=== PATIENT | female | born 1965 | race Caucasian/White ===

== ENCOUNTER 2016-12-02 16:11 | Emergency (ER) | payer BC ==
[2016-12-02] MEDS ORDERED: NS 0.9% 1000 ML* 1,800 ML IV ONE (17:39)
[2016-12-02] MEDS ORDERED: Morphine INJ* 4 MG/ML 1 ML SYRINGE IV ONE (17:41)
[2016-12-02] MEDS ORDERED: Ketorolac INJ* 30 MG/ML 1 ML VIAL IV ONE (17:41)
[2016-12-02] MEDS ORDERED: Ondansetron INJ* 2 MG/ML VIAL IV ONE (17:41)
[2016-12-02] MEDS ORDERED: Acetaminophen TAB* 325 MG PO ONE (17:42)
[2016-12-02 17:47] LABS: Hematocrit 42 % (35-47); Hemoglobin 14.1 g/dl (12.0-16.0); Mean Corpuscular HGB Conc 34 g/dl (31-36); Mean Corpuscular Hemoglobin 29 pg (27-31); Mean Corpuscular Volume 87 fL (80-97); Mean Platelet Volume 9 um3 (7.4-10.4); Red Blood Count 4.84 10^6/ul (4.0-5.4); Red Cell Distribution Width 13 % (10.5-15)
[2016-12-02 17:58] LABS: BUN/Creatinine Ratio 11.3 (8-20); C Reactive Protein 41.22 mg/L (< 5.00); Calcium 8.8 mg/dL (8.6-10.3); EGFR Non-African American 76.2 (>60); Globulin 3.1 g/dL (2-4); Potassium 3.9 mmol/L (3.5-5.0); Total Bilirubin 0.6 mg/dL (0.2-1.0); Total Protein 7.1 g/dL (6.4-8.9)
--- NOTE | 2016-12-02 18:51 | RAD ---
Indication: Fever. Single frontal view of the chest performed at 1744 hours was reviewed. Comparison is made with previous exam dated January 18, 1714. No mediastinal shift is noted. Heart is of normal size and configuration. Lung schwartz appear clear. IMPRESSION: NO ACTIVE CARDIOPULMONARY DISEASE IS NOTED.
[2016-12-02 19:36] LABS: Urine Bacteria Absent (Absent); Urine Bilirubin Negative (Negative); Urine Glucose Negative (Negative); Urine Nitrite Negative (Negative)
[2016-12-02] MEDS ORDERED: DOXYcycline CAP(*) 100 MG PO ONE ×2 (20:17→20:24)
--- NOTE | 2016-12-02 20:26 | ED ---
Meg Otoole Auryana, scribed for Meseret Edwards MD on 12/02/16 at 1650 . Influenza-Like Illness - HPI Summary HPI Summary: 51 year old female present with general body aches and fever starting on 3 days ago. Patient reports that initially 5 days ago she had chills, that progressed to diffuse myalgia/arthralgia, and now fever and DUNCAN. She denies any pain with urination or any cough. Patient reports history of neck stiffness. She denies any exposure to lyme - but does report working in the garden. PMHx is significant for headaches. FHx is significant for DM. - History of Current Complaint Chief Complaint: EDFever Time Seen by Provider: 12/02/16 16:48 Hx Obtained From: Patient Onset/Duration: Gradual Onset, Lasting Days - 5 Associated Signs & Symptoms: Fever, T Max - 105, F/C - F, Myalgia, Headache Related Hx: Possible Flu/Infectious Exposure - denies lyme disease exposure - Allergy/Home Medications Allergies/Adverse Reactions: Allergies Allergy/AdvReac Type Severity Reaction Status Date / Time No Known Allergies Allergy Verified 09/05/15 09:21 PMH/Surg Hx/FS Hx/Imm Hx Endocrine/Hematology History: Denies: Hx Diabetes Cardiovascular History: Reports: Hx Hypertension - ON MEDS Denies: Hx Pacemaker/ICD History: Denies: Hx Renal Disease Sensory History: Denies: Hx Hearing Aid Psychiatric History: Denies: Hx Panic Disorder - Surgical History Surgery Procedure, Year, and Place: APPENDECTOMY 1994-GALLBLADDER 2004 Infectious Disease History: No Infectious Disease History: Denies: Traveled Outside the [place] in Last 30 Days - Family History Known Family History: Positive: Diabetes - Social History Occupation: Employed Full-time Lives: With Family Alcohol Use: None Hx Substance Use: No Substance Use Type: Reports: None Hx Tobacco Use: No Smoking Status (MU): Never Smoked Tobacco Review of Systems Positive: Fever, Chills Eyes: Negative ENT: Negative Negative: Nasal Discharge Cardiovascular: Negative Respiratory: Negative Negative: Cough Gastrointestinal: Negative Genitourinary: Negative Negative: burning Positive: Arthralgia - diffuse, Myalgia - diffuse Skin: Negative Positive: Headache Psychological: Normal All Other Systems Reviewed And Are Negative: Yes Physical Exam - Summary Physical Exam Summary: General: Well appearing, no pain distress but does look uncomfortable. Skin: Warm, Skin Color Reflects Adequate Perfusion, Dry. Patient looks flushed. Eyes: EOMI, WILFRIDO ENT: Pharynx normal, TMs normal Neck: Supple, nontender Respiratory: CTA, breath sounds present, no rhonchi, no wheezes, no rales Cardiovascular: RRR, no murmur, no rub, no gallop Abdomen: Soft, nontender, Non-distended, no guarding, no rebound Bowel: Present Musculoskeletal: GAYATHRI, No edema Neuro: Sensory/motor intact, A&Ox3, CN intact 2-12 Psych: Affect/mood appropriate Triage Information Reviewed: Yes Vital Signs On Initial Exam: Initial Vitals Temp Pulse Resp BP Pulse Ox 103.5 F 129 20 148/84 97 12/02/16 16:12 12/02/16 16:12 12/02/16 16:12 12/02/16 16:12 12/02/16 16:12 Vital Signs Reviewed: Yes Diagnostics - Vital Signs Vital Signs Temp Pulse Resp BP Pulse Ox 12/02/16 16:12 103.5 F 129 20 148/84 97 - Laboratory Lab Results: Lab Results 12/02/16 12/02/16 12/02/16 Range/Units 17:40 17:40 17:40 WBC 4.0 (3.5-10.8) 10^3/ul RBC 4.84 (4.0-5.4) 10^6/ul Hgb 14.1 (12.0-16.0) g/dl Hct 42 (35-47) % MCV 87 (80-97) fL MCH 29 (27-31) pg MCHC 34 (31-36) g/dl RDW 13 (10.5-15) % Plt Count 124 L (150-450) 10^3/ul MPV 9 (7.4-10.4) um3 Neut % (Auto) 84.8 H (38-83) % Lymph % (Auto) 10.5 L (25-47) % Woodruff % (Auto) 4.3 (1-9) % Eos % (Auto) 0 (0-6) % Baso % (Auto) 0.4 (0-2) % Absolute Neuts (auto) 3.4 (1.5-7.7) 10^3/ul Absolute Lymphs (auto) 0.4 L (1.0-4.8) 10^3/ul Absolute Monos (auto) 0.2 (0-0.8) 10^3/ul Absolute Eos (auto) 0 (0-0.6) 10^3/ul Absolute Basos (auto) 0 (0-0.2) 10^3/ul Absolute Nucleated RBC 0.01 10^3/ul Nucleated RBC % 0.1 INR (Anticoag Therapy) 1.02 (0.89-1.11) Sodium 135 (133-145) mmol/L Potassium 3.9 (3.5-5.0) mmol/L Chloride 101 (101-111) mmol/L Carbon Dioxide 26 (22-32) mmol/L Anion Gap 8 (2-11) mmol/L BUN 9 (6-24) mg/dL Creatinine 0.80 (0.51-0.95) mg/dL Est GFR ( Amer) 98.0 (>60) Est GFR (Non-Af Amer) 76.2 (>60) BUN/Creatinine Ratio 11.3 (8-20) Glucose 93 (70-100) mg/dL Lactic Acid (0.5-2.0) mmol/L Calcium 8.8 (8.6-10.3) mg/dL Total Bilirubin 0.60 (0.2-1.0) mg/dL AST 19 (13-39) U/L ALT 12 (7-52) U/L Alkaline Phosphatase 30 L (34-104) U/L C-Reactive Protein 41.22 H (< 5.00) mg/L Total Protein 7.1 (6.4-8.9) g/dL Albumin 4.0 (3.2-5.2) g/dL Globulin 3.1 (2-4) g/dL Albumin/Globulin Ratio 1.3 (1-3) Urine Color Urine Appearance Urine pH (5-9) Ur Specific [place] (1.010-1.030) Urine Protein (Negative) Urine Ketones (Negative) Urine Blood (Negative) Urine Nitrate (Negative) Urine Bilirubin (Negative) Urine Urobilinogen (Negative) Ur Leukocyte Esterase (Negative) Urine WBC (Auto) (Absent) Urine RBC (Auto) (Absent) Ur Squamous Epith Cells (Absent) Urine Bacteria (Absent) Urine Glucose (Negative) 12/02/16 12/02/16 Range/Units 17:40 19:15 WBC (3.5-10.8) 10^3/ul RBC (4.0-5.4) 10^6/ul Hgb (12.0-16.0) g/dl Hct (35-47) % MCV (80-97) fL MCH (27-31) pg MCHC (31-36) g/dl RDW (10.5-15) % Plt Count (150-450) 10^3/ul MPV (7.4-10.4) um3 Neut % (Auto) (38-83) % Lymph % (Auto) (25-47) % Woodruff % (Auto) (1-9) % Eos % (Auto) (0-6) % Baso % (Auto) (0-2) % Absolute Neuts (auto) (1.5-7.7) 10^3/ul Absolute Lymphs (auto) (1.0-4.8) 10^3/ul Absolute Monos (auto) (0-0.8) 10^3/ul Absolute Eos (auto) (0-0.6) 10^3/ul Absolute Basos (auto) (0-0.2) 10^3/ul Absolute Nucleated RBC 10^3/ul Nucleated RBC % INR (Anticoag Therapy) (0.89-1.11) Sodium (133-145) mmol/L Potassium (3.5-5.0) mmol/L Chloride (101-111) mmol/L Carbon Dioxide (22-32) mmol/L Anion Gap (2-11) mmol/L BUN (6-24) mg/dL Creatinine (0.51-0.95) mg/dL Est GFR ( Amer) (>60) Est GFR (Non-Af Amer) (>60) BUN/Creatinine Ratio (8-20) Glucose (70-100) mg/dL Lactic Acid 1.0 (0.5-2.0) mmol/L Calcium (8.6-10.3) mg/dL Total Bilirubin (0.2-1.0) mg/dL AST (13-39) U/L ALT (7-52) U/L Alkaline Phosphatase (34-104) U/L C-Reactive Protein (< 5.00) mg/L Total Protein (6.4-8.9) g/dL Albumin (3.2-5.2) g/dL Globulin (2-4) g/dL Albumin/Globulin Ratio (1-3) Urine Color Yellow Urine Appearance Clear Urine pH 6.0 (5-9) Ur Specific [place] 1.016 (1.010-1.030) Urine Protein Negative (Negative) Urine Ketones 1+ H (Negative) Urine Blood 1+ H (Negative) Urine Nitrate Negative (Negative) Urine Bilirubin Negative (Negative) Urine Urobilinogen Negative (Negative) Ur Leukocyte Esterase Negative (Negative) Urine WBC (Auto) Trace(0-5/hpf) (Absent) Urine RBC (Auto) 2+(6-10/hpf) H (Absent) Ur Squamous Epith Cells Present H (Absent) Urine Bacteria Absent (Absent) Urine Glucose Negative (Negative) Result Diagrams: 12/02/16 17:40 12/02/16 17:40 Lab Statement: Any lab studies that have been ordered have been reviewed, and results considered in the medical decision making process. - Radiology CXR Xray Interpretation: No Acute Changes Radiology Interpretation Completed By: Radiologist - EKG 18:22 EKG Rhythm: Sinus Tachycardia EKG Interpretation: tachycardia but otherwise NML Flu Symptom Course/Dx - Course Course Of Treatment: 51 yo female with high fever, and tachycardia labs remarkably normal pt with joint aches and head ache no rash but some opportunity for tick exposure agrees to treatment - Diagnoses Provider Diagnoses: Fever Discharge - Discharge Plan Condition: Stable Disposition: HOME Patient Education Materials: Fever in Adults (ED) Referrals: Preethi Carey MD [Primary Care Provider] - 3 Days The documentation as recorded by the Meg colmenares Auryana accurately reflects the service I personally performed and the decisions made by , Meseret Edwards MD.
[2016-12-02 20:31] VITALS: BP 121/75
== END 2016-12-02 20:42 | disposition home or self-care (01) ==
LOC: ED 16:11
DX: R50.9 Fever, unspecified (principal); R51 Headache
CPT/HCPCS: 36415; 71010; 80053; 81003; 81015; 83605; 85025; 85610; 86140; 87040; 93005; 96374; 96375; 99283; A9270-GY; J1885; J2270; J2405

== ENCOUNTER 2016-12-03 13:30 | Emergency (ER) | payer BC ==
[2016-12-03 18:25] LABS: Hematocrit 40 % (35-47); Hemoglobin 13.2 g/dl (12.0-16.0); Mean Corpuscular HGB Conc 33 g/dl (31-36); Mean Corpuscular Hemoglobin 29 pg (27-31); Mean Corpuscular Volume 88 fL (80-97); Mean Platelet Volume 9 um3 (7.4-10.4); Red Blood Count 4.56 10^6/ul (4.0-5.4); Red Cell Distribution Width 13 % (10.5-15); White Blood Count 5.9 10^3/ul (3.5-10.8)
[2016-12-03 18:42] LABS: C Reactive Protein 77.81 mg/L (< 5.00)
[2016-12-03] MEDS ORDERED: Ketorolac INJ* 30 MG/ML 1 ML VIAL IV ONE (18:57)
[2016-12-03] MEDS ORDERED: DOXYcycline IV* 100 MG in NS 0.9% 250 ML* 250 ML IVPB ONE (18:57)
[2016-12-03] MEDS ORDERED: NS 0.9% 1000 ML* 1,000 ML IV ONE (18:57)
[2016-12-03] MEDS ORDERED: Acetaminophen TAB* 325 MG PO ONE (19:29)
[2016-12-03 21:43] LABS: CSF Glucose 58 mg/dL (40-70)
[2016-12-03 21:57] LABS: BF WBC Count #1 0; BF WBC Count #2 2; Body Fluid Appearance Clear; Body Fluid WBC 1 /mcL; WBC counts within 15%? Yes
[2016-12-03 21:59] LABS: BF RBC Count #1 11; BF RBC Count #2 13; RBC counts within 6%? Yes
[2016-12-03 22:06] LABS: Body Fluid Total Cells Counted 10
[2016-12-03 22:39] VITALS: BP 128/78
[2016-12-03 22:45] LABS: Albumin 3.8 g/dL (3.2-5.2); BUN/Creatinine Ratio 8.9 (8-20); EGFR African American 99.5 (>60); EGFR Non-African American 77.4 (>60); Globulin 2.8 g/dL (2-4); Potassium 3.9 mmol/L (3.5-5.0); Total Bilirubin 0.7 mg/dL (0.2-1.0); Total Protein 6.6 g/dL (6.4-8.9)
--- NOTE | 2016-12-05 13:49 | ED ---
Corrina Otoole SooYoung, scribed for Andrea Gabriel MD on 12/03/16 at 1709 . HPI Febrile Illness - HPI Summary HPI Summary: A 51 y/o F presents to ED referred by Dr. Carey with c/o fever and chills onset five days ago. Associated sx: diffuse DUNCAN, body aches, jaw pain. Pt was seen in ED last night with temp of 104.5 F. She was given doxy last night, has taken 1 dose. Took 2x 400mg Ibuprofen around 1300. - History of Current Complaint Chief Complaint: EDFever Time Seen by Provider: 12/03/16 17:05 Hx Obtained From: Patient Onset/Duration: Still Present Timing: Constant Initial Severity: Moderate Current Severity: Severe Pain Intensity: 8 Pain Scale Used: 0-10 Numeric Associated Signs and Symptoms: Chills, Headache, Myalgia, Other: - pos: jaw pain - Allergy/Home Medications Allergies/Adverse Reactions: Allergies Allergy/AdvReac Type Severity Reaction Status Date / Time No Known Allergies Allergy Verified 09/05/15 09:21 PMH/Surg Hx/FS Hx/Imm Hx Previously Healthy: No Endocrine/Hematology History: Denies: Hx Diabetes Cardiovascular History: Reports: Hx Hypertension - ON MEDS Denies: Hx Pacemaker/ICD History: Denies: Hx Renal Disease Sensory History: Denies: Hx Hearing Aid Psychiatric History: Denies: Hx Panic Disorder - Surgical History Surgery Procedure, Year, and Place: APPENDECTOMY 1994-GALLBLADDER 2005 Infectious Disease History: No Infectious Disease History: Denies: Traveled Outside the [place] in Last 30 Days - Family History Known Family History: Positive: Diabetes - Social History Occupation: Employed Full-time Lives: With Family Alcohol Use: None Hx Substance Use: No Substance Use Type: Reports: None Hx Tobacco Use: No Smoking Status (MU): Never Smoked Tobacco Review of Systems Positive: Fever, Chills Positive: Other - pos: jaw pain Positive: Myalgia - diffuse Positive: Headache All Other Systems Reviewed And Are Negative: Yes Physical Exam Triage Information Reviewed: Yes Vital Signs On Initial Exam: Initial Vitals Temp Pulse Resp BP Pulse Ox 101.5 F 122 16 125/71 97 12/03/16 13:30 12/03/16 13:30 12/03/16 13:30 12/03/16 13:30 12/03/16 13:30 Vital Signs Reviewed: Yes Appearance: Positive: Well-Appearing, No Pain Distress Skin: Positive: Warm, Skin Color Reflects Adequate Perfusion - FLUSHED AT CHEST , Dry Head/Face: Positive: Normal Head/Face Inspection Eyes: Positive: Normal ENT: Positive: Normal ENT inspection Neck: Positive: Supple, Nontender, Other: - NO MENINGISMUS Respiratory/Lung Sounds: Positive: Clear to Auscultation, Breath Sounds Present Cardiovascular: Positive: RRR Abdomen Description: Positive: Nontender, Soft Bowel Sounds: Positive: Present Musculoskeletal: Positive: Normal Neurological: Positive: Normal Psychiatric: Positive: Normal, Affect/Mood Appropriate Diagnostics - Vital Signs Vital Signs Temp Pulse Resp BP Pulse Ox 12/03/16 15:09 99.7 F 103 16 138/80 98 12/03/16 13:30 101.5 F 122 16 125/71 97 - Laboratory Lab Results: Lab Results 12/03/16 12/03/16 12/03/16 Range/Units 18:10 18:10 21:00 WBC 5.9 (3.5-10.8) 10^3/ul RBC 4.56 (4.0-5.4) 10^6/ul Hgb 13.2 (12.0-16.0) g/dl Hct 40 (35-47) % MCV 88 (80-97) fL MCH 29 (27-31) pg MCHC 33 (31-36) g/dl RDW 13 (10.5-15) % Plt Count 117 L (150-450) 10^3/ul MPV 9 (7.4-10.4) um3 Neut % (Auto) 85.6 H (38-83) % Lymph % (Auto) 11.0 L (25-47) % [place] % (Auto) 3.1 (1-9) % Eos % (Auto) 0 (0-6) % Baso % (Auto) 0.3 (0-2) % Absolute Neuts (auto) 5.1 (1.5-7.7) 10^3/ul Absolute Lymphs (auto) 0.6 L (1.0-4.8) 10^3/ul Absolute Monos (auto) 0.2 (0-0.8) 10^3/ul Absolute Eos (auto) 0 (0-0.6) 10^3/ul Absolute Basos (auto) 0 (0-0.2) 10^3/ul Absolute Nucleated RBC 0 10^3/ul Nucleated RBC % 0 Sodium 134 (133-145) mmol/L Potassium 3.9 (3.5-5.0) mmol/L Chloride 100 L (101-111) mmol/L Carbon Dioxide 24 (22-32) mmol/L Anion Gap 10 (2-11) mmol/L BUN 7 (6-24) mg/dL Creatinine 0.79 (0.51-0.95) mg/dL Est GFR ( Amer) 99.5 (>60) Est GFR (Non-Af Amer) 77.4 (>60) BUN/Creatinine Ratio 8.9 (8-20) Glucose 95 (70-100) mg/dL Calcium 9.0 (8.6-10.3) mg/dL Total Bilirubin 0.70 (0.2-1.0) mg/dL AST 23 (13-39) U/L ALT 17 (7-52) U/L Alkaline Phosphatase 28 L (34-104) U/L C-Reactive Protein 77.81 H (< 5.00) mg/L Total Protein 6.6 (6.4-8.9) g/dL Albumin 3.8 (3.2-5.2) g/dL Globulin 2.8 (2-4) g/dL Albumin/Globulin Ratio 1.4 (1-3) Fluid Source Fluid Volume mL Fluid Color Fluid Appearance Fluid WBC /mcL Fluid RBC /mcL Fluid Tot Cell Count Fluid Neutrophils Fluid Lymphocytes % Fluid Monocytes % Fluid Cell Count Rvw By Fluid Comment CSF Cell Count Tube # CSF Glucose 58 (40-70) mg/dL CSF Total Protein 17 (15-45) mg/dL 12/03/16 Range/Units 21:00 WBC (3.5-10.8) 10^3/ul RBC (4.0-5.4) 10^6/ul Hgb (12.0-16.0) g/dl Hct (35-47) % MCV (80-97) fL MCH (27-31) pg MCHC (31-36) g/dl RDW (10.5-15) % Plt Count (150-450) 10^3/ul MPV (7.4-10.4) um3 Neut % (Auto) (38-83) % Lymph % (Auto) (25-47) % [place] % (Auto) (1-9) % Eos % (Auto) (0-6) % Baso % (Auto) (0-2) % Absolute Neuts (auto) (1.5-7.7) 10^3/ul Absolute Lymphs (auto) (1.0-4.8) 10^3/ul Absolute Monos (auto) (0-0.8) 10^3/ul Absolute Eos (auto) (0-0.6) 10^3/ul Absolute Basos (auto) (0-0.2) 10^3/ul Absolute Nucleated RBC 10^3/ul Nucleated RBC % Sodium (133-145) mmol/L Potassium (3.5-5.0) mmol/L Chloride (101-111) mmol/L Carbon Dioxide (22-32) mmol/L Anion Gap (2-11) mmol/L BUN (6-24) mg/dL Creatinine (0.51-0.95) mg/dL Est GFR ( Amer) (>60) Est GFR (Non-Af Amer) (>60) BUN/Creatinine Ratio (8-20) Glucose (70-100) mg/dL Calcium (8.6-10.3) mg/dL Total Bilirubin (0.2-1.0) mg/dL AST (13-39) U/L ALT (7-52) U/L Alkaline Phosphatase (34-104) U/L C-Reactive Protein (< 5.00) mg/L Total Protein (6.4-8.9) g/dL Albumin (3.2-5.2) g/dL Globulin (2-4) g/dL Albumin/Globulin Ratio (1-3) Fluid Source Cerebral spinal Fluid Volume 1.5 mL Fluid Color Colorless Fluid Appearance Clear Fluid WBC 1 /mcL Fluid RBC 12 /mcL Fluid Tot Cell Count 10 Fluid Neutrophils Not Reportable Fluid Lymphocytes 60 % Fluid Monocytes 40 % Fluid Cell Count Rvw By Fluid Comment CSF Cell Count Tube # 4 CSF Glucose (40-70) mg/dL CSF Total Protein (15-45) mg/dL Result Diagrams: 12/03/16 18:10 12/03/16 18:10 Lab Statement: Any lab studies that have been ordered have been reviewed, and results considered in the medical decision making process. Re-Evaluation - Re-Evaluation 1 Re-Evaluation Time: 22:22 Change: Improved Comment: Discussing results with pt. Pt appears mildly improved. Course/Dx - Course Course Of Treatment: Ms. Akbar has not improved in the two days since she was here and diagnosed with a likely tick-borne illness with a high fever. She was started on doxycycline of which she has had two doses. She had a fever of 104 at home and has been taking ibuprofen. Here she looked ill on arrival with tachycardia and a fever and she improved somewhat with fluids and antipyretics. Her WBC's were still normal but her platelets are lower and her CRP is higher. This is consistent with a tick-borne illness. She was given IV doxycycline here. DUNCAN is a very prominent symptom for her and, therefore I performed an LP which is normal. Her RBC's were 12 and this is likely from the tap rather than representing a SAH as it has been days and there is no xanthrochromia and it does not fit the clinical picture. - Diagnoses Provider Diagnoses: Tick-borne disease Discharge - Discharge Plan Condition: Stable Disposition: HOME Patient Education Materials: Fever in Adults (ED), Acute Headache (ED) Referrals: Preethi Carey MD [Primary Care Provider] - 2 Days (Follow up with Dr. Carey in 1-2 days.) Additional Instructions: Follow up with Dr. Carey within the next 1-2 days. Please return to the ED if you experience new or worsening symptoms. The documentation as recorded by the Corrina colmenares SooYoung accurately reflects the service I personally performed and the decisions made by me, Andrea Gabriel MD.
[2016-12-06 00:37] LABS: B garinii/B afzelii PCR Negative (Negative); B mayonii PCR Negative (Negative)
[2016-12-06 00:45] LABS: B. miyamotoi PCR, B Negative (Negative); Babesia divergens/MO-1 Negative (Negative); Babesia ducani Negative (Negative); Ehrlichia ewingii/canis Negative (Negative)
[2016-12-06 01:34] LABS: CSF West Nile Virus RNA (PCR) Negative (Negative); West Nile Virus Source CSF
== END 2016-12-03 22:37 | disposition home or self-care (01) ==
LOC: ED 13:30
DX: A00-B99 Certain infectious and parasitic diseases (principal)
CPT/HCPCS: 36415; 80053; 82945; 84157; 85025; 86140; 86617; 87070; 87205; 87476; 87798; 89051; 99283; A9270-GY; J1885

== ENCOUNTER 2016-12-20 10:37 | Observation (INO) | payer BC ==
[2016-12-20] MEDS ORDERED: Aspirin Low Dose CHEW TAB* 81 MG PO ONE (10:42)
[2016-12-20] MEDS ORDERED: NS 0.9% 1000 ML* 1,000 ML IV ONE (10:42)
[2016-12-20] MEDS ORDERED: Diltiazem IV* 5 MG/ML 5 ML VIAL (for loading dose/IV Push) (25 MG) IV SLOW PU ONE (10:44)
--- NOTE | 2016-12-20 11:16 | RAD ---
INDICATION: Tachycardia. COMPARISON: Comparison is made with a prior chest x-ray study from December 02, 2016. TECHNIQUE: A portable view of the chest was obtained. FINDINGS: Cardiac and mediastinal contours appear to be within normal limits. The lungs are clear. No pleural effusion is seen. IMPRESSION: NO EVIDENCE FOR ACUTE DISEASE.
[2016-12-20 11:46] LABS: Hematocrit 45 % (35-47); Hemoglobin 14.2 g/dl (12.0-16.0); Mean Corpuscular HGB Conc 32 g/dl (31-36); Mean Corpuscular Hemoglobin 28 pg (27-31); Mean Corpuscular Volume 88 fL (80-97); Mean Platelet Volume 9 um3 (7.4-10.4); Red Blood Count 5.03 10^6/ul (4.0-5.4); Red Cell Distribution Width 14 % (10.5-15); White Blood Count 12.3 10^3/ul (3.5-10.8)
[2016-12-20] MEDS ORDERED: Diltiazem IV VIAL* 125 MG in D5W 100 ML BAG* 100 ML IV ONE (11:52)
[2016-12-20 11:54] LABS: ALT 18 U/L (7-52); AST 21 U/L (13-39); Albumin 4.6 g/dL (3.2-5.2); Alkaline Phosphatase 42 U/L (34-104); Anion Gap 12 mmol/L (2-11); Blood Urea Nitrogen 9 mg/dL (6-24); CO2 Carbon Dioxide 22 mmol/L (22-32); Calcium 9.3 mg/dL (8.6-10.3); Chloride 103 mmol/L (101-111); Creatine Kinase 39 U/L (10-223); EGFR African American 136.6 (>60); EGFR Non-African American 106.3 (>60); Glucose 75 mg/dL (70-100); Magnesium 1.9 mg/dL (1.9-2.7); Potassium 3.8 mmol/L (3.5-5.0); Sodium 137 mmol/L (133-145); Total Protein 7.6 g/dL (6.4-8.9)
[2016-12-20 11:56] LABS: Troponin I 0.01 ng/mL (<0.04)
[2016-12-20] MEDS ORDERED: Magnesium Sulfate 2 GM IV* 2 GM/50 ML BAG IVPB ONE (12:20)
[2016-12-20] MEDS ORDERED: Acetaminophen TAB* 325 MG PO PRN (12:28)
[2016-12-20 12:31] LABS: C Reactive Protein < 1.00 mg/L (< 5.00)
[2016-12-20 12:37] LABS: TSH (Thyroid Stimulating Horm) 1.27 mcIU/mL (0.34-5.60)
[2016-12-20 12:53] LABS: Erythrocyte Sed Rate 9 mm/Hr (0-14)
[2016-12-20] MEDS ORDERED: Diltiazem DRIP* 100 MG/100 ML ADDV.BAG IVPB SCH (13:00)
[2016-12-20] MEDS: Ondansetron INJ* 2 MG/ML VIAL IV PRN ×2 (13:10→19:32)
--- NOTE | 2016-12-20 14:10 | ED ---
Meg Otoole Auryana, scribed for Herb Pagan MD on 12/20/16 at 1047 . Palpitations / Dysrhythmia - HPI Summary HPI Summary: 51 year old female RICKEY with SVT starting 09:1509:30. Patient reports that she was unable to break the episode of SVT today. She also has chest pressure after EMS treatment POULTRY SCALDER. She denies any SOB. PMHx is significant for lyme disease, and SVT - no history of atrial fibrillation. SHx is not significant for tobacco , alcohol or any drug use. - History of Current Complaint Time Seen by Provider: 12/20/16 10:46 Hx Obtained From: Patient Onset/Duration: Sudden Onset, Lasting Hours - started at 09:1509:30 AM, Still Present Timing: Constant Severity Initially: Moderate Severity Currently: Moderate Character: Fast, Irregular Alleviating: Nothing Associated Signs & Symptoms: Chest Pain - CHEST PRESSURE Related History: Similar Episode/Dx as - YES SEE HPI - Allergy/Home Medications Allergies/Adverse Reactions: Allergies Allergy/AdvReac Type Severity Reaction Status Date / Time No Known Allergies Allergy Verified 09/05/15 09:21 PMH/Surg Hx/FS Hx/Imm Hx Endocrine/Hematology History: Denies: Hx Diabetes Cardiovascular History: Reports: Hx Hypertension - ON MEDS Denies: Hx Pacemaker/ICD History: Denies: Hx Renal Disease Sensory History: Denies: Hx Hearing Aid Psychiatric History: Denies: Hx Panic Disorder - Surgical History Surgery Procedure, Year, and Place: APPENDECTOMY 1994-GALLBLADDER 2004 - Family History Known Family History: Positive: Diabetes - Social History Lives: With Family Alcohol Use: None Hx Substance Use: No Substance Use Type: Reports: None Hx Tobacco Use: No Smoking Status (MU): Never Smoked Tobacco Review of Systems Constitutional: Negative Negative: Fever Eyes: Negative ENT: Negative Positive: Palpitations - SVT, Chest Pain - CHEST PRESSURE Respiratory: Negative Negative: Shortness Of Breath Gastrointestinal: Negative Genitourinary: Negative Musculoskeletal: Negative Skin: Negative Neurological: Negative Psychological: Normal All Other Systems Reviewed And Are Negative: Yes Physical Exam - Summary Physical Exam Summary: VITAL SIGNS: Reviewed. GENERAL: Patient is a well-developed and nourished female who is lying comfortable in the stretcher. Patient is not in any acute respiratory distress. HEAD AND FACE: No signs of trauma. No ecchymosis, hematomas or skull depressions. No sinus tenderness. EYES: PERRLA, EOMI x 2, No injected conjunctiva, no nystagmus. EARS: Hearing grossly intact. Ear canals and tympanic membranes are within normal limits. MOUTH: Oropharynx within normal limits. NECK: Supple, trachea is midline, no adenopathy, no JVD, no carotid bruit, no c- spine tenderness, neck with full ROM. CHEST: Symmetric, no tenderness at palpation LUNGS: Clear to auscultation bilaterally. No wheezing or crackles. CVS: tachycardic with IRR, S1 and S2 present, no murmurs or gallops appreciated. ABDOMEN: Soft, non-tender. No signs of distention. No rebound no guarding, and no masses palpated. Bowel sounds are normal. EXTREMITIES: FROM in all major joints, no edema, no cyanosis or clubbing. NEURO: Alert and oriented x 3. No acute neurological deficits. Speech is normal and follows commands. SKIN: mildly diaphoretic and warm. Triage Information Reviewed: Yes Vital Signs Reviewed: Yes Diagnostics - Laboratory Result Diagrams: 12/20/16 11:30 12/20/16 11:30 Lab Statement: Any lab studies that have been ordered have been reviewed, and results considered in the medical decision making process. - Radiology CXR Xray Interpretation: No Acute Changes Radiology Interpretation Completed By: Radiologist - EKG 10:41 EKG Interpretation: atrial fibrillation @ 166 BPM. Course/Dx - Course Assessment/Plan: 51 year old female BIBA with SVT starting 09:15/09:30. Patient reports that she was unable to break the episode of SVT today. She also has chest pressure after EMS treatment POULTRY SCALDER. She denies any SOB. PMHx is significant for lyme disease, and SVT - no history of atrial fibrillation. SHx is not significant for tobacco, alcohol or any drug use. Test results without any significant abnormalities except WBC of 12.3, troponin 0.1. EKG shows atrial fibrillation with RVR. Patient was given 20 mg Cardizem IV, and patient continues to have atrial fibrillation with RVR. Therefore she was placed on a Cardizem drip and IV fluids. At this point, I discussed the patient with Dr. Gregory who accepted the patient for admission. Patient is hemodynamically stable and A&Ox3. - Diagnoses Provider Diagnoses: Atrial fibrillation with RVR - Physician Notifications Discussed Care Of Patient With: Lilia Gregory Time Discussed With Above Provider: 11:42 - agrees to admit patient Instructed by Provider To: Admit As Observation Discharge - Discharge Plan Condition: Stable Disposition: ADMITTED TO [facility] The documentation as recorded by the Meg colmenares Auryana accurately reflects the service I personally performed and the decisions made by , Herb Pagan MD.
[2016-12-20] MEDS: Enoxaparin(*) 60 MG/0.6 ML SYR SUBCUT SCH (15:46)
[2016-12-20] MEDS: Diltiazem DRIP* 100 MG/100 ML ADDV.BAG IVPB SCH ×3 (16:00→20:32)
[2016-12-20] MEDS ORDERED: Potassium Chlor TAB* 20 MEQ TAB.ER PO ONE (19:14)
[2016-12-20] MEDS ORDERED: Metoprolol Tartrate IV* 1 MG/ML 5 ML VIAL IV ONE (19:15)
[2016-12-20] MEDS: Metoprolol Tartrate TAB* 25 MG PO SCH (21:31)
--- NOTE | 2016-12-20 22:23 | HP ---
ATTENDING PHYSICIAN ADDENDUM NOW INCLUDED ON THIS REPORT CC: Dr. Silva * ADMISSION HISTORY AND PHYSICAL: DATE OF ADMISSION: 12/20/16 PRIMARY CARE PROVIDER: Dr. Silva ADMITTING PROVIDER: LEIGHANN Ryan. SUPERVISING PHYSICIAN: Lilia Gregory MD. * (DICTATED BY LEIGHANN RYAN) CHIEF COMPLAINT: Palpitations and chest pain. HISTORY OF PRESENT ILLNESS: This is a 51-year-old female who is otherwise healthy, but recently treated for Lyme disease, who presented to the emergency department with complaints of palpitations that started suddenly this morning. The patient states that she has had similar, but less persistent symptoms a few times over the last couple of years where she will have palpitations that lasts may be 60 seconds or less and resolve spontaneously. She has never undergone any investigation for these prior complaints. The patient was seen in the emergency department on 12/02/16 holiday with high fever and flu-like symptoms. She was diagnosed with Lyme disease and started on doxycycline at that time. She completed 16 days of therapy, just finishing yesterday and has followed up with infectious disease specialist, Dr. Rivera. The patient reports that she has been persistently fatigued since her diagnosis, but states that she has had no other symptoms. She tolerated the doxycycline well and denies nausea, vomiting or abdominal pain. She has had no recent shortness of breath or other episodes of chest pain. No lower extremity edema or significant changes in weight. The patient was brought to the emergency department by EMS and en route received two 15 mg doses of IV diltiazem and an additional 20 mg IV dose in the emergency department and despite this she is still in rapid atrial fibrillation. The patient did attend [employer] yesterday, but states that she had only 1 alcoholic beverage, which was a vodka with seltzer. It was in a closed container and she did not eat anything at the festival otherwise. She denies any history of illicit substances. PAST MEDICAL HISTORY: 1. Recent treatment for Lyme disease. 2. Prior history of hypertension, but no longer requiring medications. PAST SURGICAL HISTORY: 1. Appendectomy. 2. Cholecystectomy. 3. Tonsillectomy. HOME MEDICATIONS: None. SOCIAL HISTORY: The patient lives at home with her and 2 children, ages 15 and 18. She has rare to occasional alcohol consumption. Denies any smoking history and denies illicit drug use. REVIEW OF SYSTEMS: As noted above in HPI. All other systems reviewed are negative. PHYSICAL EXAMINATION GENERAL: This is a very pleasant 51-year-old female, who is in no acute distress. She appears slightly younger than stated age and overall athletic appearing. VITAL SIGNS: Initial vitals, temperature 99 degrees Fahrenheit, pulse 163 beats per minute, respiratory rate 16, oxygen saturation 98% on room air, and blood pressure 120/79 mmHg. HEENT: Head is normocephalic and atraumatic. Mucous membranes are pink and moist. NECK: Neck is supple and free of lymphadenopathy. No JVD appreciated. CARDIOVASCULAR: Heart is tachycardiac, irregular rhythm, with no murmurs appreciated. RESPIRATORY: Lungs are clear to auscultation, without wheezes, crackles, or rhonchi. ABDOMEN: Abdomen is soft and nontender to palpation. EXTREMITIES: No edema appreciated. SKIN: No rash appreciated on limited exam or concerning lesions. LABORATORY EVALUATION: CBC shows a white blood cell count of 12,300, hemoglobin of 14.2 g/dL, platelet count 210,000. Comprehensive metabolic panel is largely unremarkable, with sodium of 137, potassium of 3.8, creatinine of 0.6. Lactic acid normal at 0.9. Transaminases and total bilirubin within normal limits. Magnesium normal at 1.9. Troponin negative. CRP is less than 1. TSH is pending. IMAGIN. Chest x-ray shows no acute process. 2. EKG shows atrial fibrillation with a rate of approximately 155. ASSESSMENT AND PLAN: This is an otherwise healthy 51-year-old female who recently completed treatment for Lyme disease, who presents with new onset of rapid atrial fibrillation. She has failed to convert or significantly reduce her rate with 3 diltiazem boluses. She will subsequently be admitted for further management of her atrial fibrillation. 1. Rapid atrial fibrillation - the patient received 3 IV boluses of diltiazem without significant improvement in rate. A diltiazem drip will be initiated at this time, which will need to be titrated. The patient appears to be tolerating tachycardia well and remains normotensive and is mentating appropriately without severe nausea. We will initiate anticoagulation with Lovenox at this time and contacted neurosurgical nurse practitioner, Dr. Balderas, to please evaluate the patient. Consider cardioversion tomorrow if she remains in atrial fibrillation. No significant electrolyte disturbances to explain her new dysrhythmia. We will check a toxicology screen, but she denies any ingestion from last night's music festival. She was recently treated for Lyme disease, however, and I would be concerned for new cardiomyopathy, which could potentially explain her atrial fibrillation. An echocardiogram will be ordered as well for further evaluation. 2. Code status. The patient is full code. 3. DVT prophylaxis. The patient will receive full anticoagulation with Lovenox at this time. 4. Healthcare proxy is the patient's . DISPOSITION: The patient is being admitted to observation status for rapid atrial fibrillation with possible discharge tomorrow. LEIGHANN RYAN ADDENDUM: Mrs. Akbar is a 51-year-old female with no significant complaints of past medical history presents complaining of palpitations and was in atrial fibrillation with rapid ventricular response. She is going to be admitted to intensive care unit for further treatment with Cardizem drip. Cardiology is going to be assisting the patient with further recommendations. For further details of the patient's presentation and plan, please see history and physical dictated by Marty Hernandez on 12/20/16 with which I agree. LILIA GREGORY MD [id number]/[facility]PS #: [id number] [id number]/CPS #: [id number] BRENDON
--- NOTE | 2016-12-20 22:48 | HP ---
HISTORY AND PHYSICAL:* ADDENDUM: Mrs. Akbar is a 51-year-old female with no significant complaints of past medical history presents complaining of palpitations and was in atrial fibrillation with rapid ventricular response. She is going to be admitted to intensive care unit for further treatment with Cardizem drip. Cardiology is going to be assisting the patient with further recommendations. For further details of the patient's presentation and plan, please see history and physical dictated by Marty Hernandez on 12/20/16 with which I agree. [id number]/[facility] #: [id number] MTDD
[2016-12-21] MEDS: Enoxaparin(*) 60 MG/0.6 ML SYR SUBCUT SCH (01:25)
[2016-12-21] MEDS: Metoprolol Tartrate TAB* 25 MG PO SCH ×2 (01:52→08:15)
--- NOTE | 2016-12-21 01:52 | CONS ---
CC: Preethi Silva MD CONSULTATION REPORT: DATE OF CONSULT: 12/20/16 REASON FOR CONSULTATION: Atrial fibrillation with rapid ventricular rate. CHIEF COMPLAINT: Palpitations and racing of the heart. HISTORY OF PRESENT ILLNESS: Nickie Akbar is a 51-year-old woman who states she has had short bursts of palpitations and racing of the heart in the past, but never sustained. The first time it occurred 16 years ago when she was . The nurse checked her pulse and it was 180 beats a minute and this has occurred on occasion since then, they have always been short lived. Earlier this month, the patient had very high fevers and was diagnosed with Lyme disease for which she has been treated with doxycycline. She just stopped this medication and admits that she had a few alcoholic beverages last night. This morning woke up feeling well, but soon after, realized that her heart was racing and she just did not feel herself. She presented to the emergency room where she was found to have atrial fibrillation with a rapid ventricular rate. At the time I saw her, she has been on rate lowering agents and still remains tachycardic and is still very aware of the rapid heartbeat. PAST MEDICAL HISTORY: Includes intermittent palpitations. Recent Lyme disease , seen by Dr. Rivera on 12/17/16. Hypertension. 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 Followup MRI showed white matter disease. No demyelination, headaches felt to be migraine. PAST SURGICAL HISTORY: Cholecystectomy in 2008, appendectomy in 1999, LEEP in 1994, tonsillectomy in 1985. ALLERGIES: SUMATRIPTAN (GI pain and nausea). FAMILY HISTORY: Mother has a history of hypertension and colon cancer. Father has a history of lung cancer. She has a sister with hypothyroid disease. Paternal grandmother of breast cancer, age 48. Paternal uncle had lung cancer, at age 48 and another paternal uncle of a myocardial infarction at age 65. SOCIAL HISTORY: The patient is a RN. . Active. Never smoked. Occasional alcohol use. No history of alcohol or recreational drug abuse. REVIEW OF SYSTEMS: Significant for some mild alcohol intake the night before, and Lyme disease. No fevers in the last week. No coughing, constipation, diarrhea, urinary problems or other vagal triggers identified. No sleep disturbances identified. A 14-point review of systems was performed. All pertinent positives and negatives mentioned in the above review of systems and history of present illness. PHYSICAL EXAM: On exam, the patient is a lean, fit-appearing, older, middle aged woman in no acute distress. She is 5 feet 5 inches, weighs 130 pounds with a BMI of 22. Blood pressure 120/79, pulse was 163 and irregularly irregular on arrival, temperature 99 degrees Fahrenheit. Psychologically, calm , cooperative, pleasant. Neurologically, awake, alert, oriented to person, place , and time. Cranial nerves II through XII intact. Grossly normal sensory and motor function in upper and lower extremities. Gait not checked, but moves extremities well in bed. HEENT: Pupils are equal and round. Mucous membranes are moist. Neck: Without appreciable increased JVP. Good carotid pulses. No audible bruits. Breath sounds clear with good effort. No wheezes, rales or rhonchi. Coronary: S1, S2 irregularly irregular and tachycardic. Very prominent forcible heart sounds, but no murmurs, rubs or extra systole. Abdomen : Flat, active bowel sounds, soft, nontender. No hepatomegaly is appreciated. Lower Extremities: Free of edema and warm with very easily palpable posterior tibial pulses. DIAGNOSTIC STUDIES/LAB DATA: A 12-lead ECG on arrival to the emergency department showed atrial fibrillation with a ventricular rate of 166 beats a minute, QRS axis +60, normal interventricular conduction times and diffuse nonspecific ST changes when compared with her ECG from 12/02/16. This replaces sinus tachycardia at 106 beats a minute. White count 12.3, hemoglobin 14.2, hematocrit 45, platelets 210,000. Sed rate 9. Sodium 137, potassium 3.8, chloride 103, bicarb 22, BUN 9, creatinine 0.6. Glucose 75. Magnesium 1.9. ALT of 18. Troponin #1 of 0.01. CRP less than 1. TSH 1.27. BNP 25. Lyme titers were positive. This was on 12/03/16 and . CSF tap was negative for West Nile virus. Treadmill stress test, March 2014, was negative for inducible ischemia. The patient walked to stage IV with standard [facility] protocol. Resting hypertension 128/90, peak blood pressure 188/104 in early recovery. Rare PVC with testing. IMPRESSION: In summary, Nickie Akbar is a 51-year-old woman with intermittent palpitations for approximately 16 years, who now presents with sustained palpitations with a rapid ventricular rate noted on her ECG. Possible triggers for the patient's atrial fibrillation could include non- atrial fibrillation tachyarrhythmias, supraventricular tachycardia, alcohol could be a factor and her recent diagnosis of Lyme's could be contributing as well. I agree with the plan for rate control and electrolyte replacement, potassium and magnesium. If she does not spontaneously cardiovert, then we will plan on electrical cardioversion in the morning in addition to echocardiogram. Although the patient's CHADS score is low, 0 to 1, I think it is prudent to put her on blood thinners at least overnight. At the most, she needs them 1 month following cardioversion. I noted in past records that the patient was on beta eugenio in the past. It is unclear to me if this was for hypertension or for headaches and it was relatively recently discontinued, she may benefit from either resumption of beta eugenio or rate lowering calcium channel eugenio and avoidance of alcohol going forward. PLAN/RECOMMENDATIONS: Further recommendations will be made pending the patient' s clinical course. [id number]/[facility] #: [id number] BRENDON
[2016-12-21 06:16] LABS: Potassium 4.3 mmol/L (3.5-5.0)
[2016-12-21 06:17] LABS: BUN/Creatinine Ratio 10.9 (8-20); Calcium 8.6 mg/dL (8.6-10.3); EGFR African American 151.1 (>60); EGFR Non-African American 117.5 (>60)
--- NOTE | 2016-12-21 08:22 | PN ---
Subjective Date of Service: 12/21/16 Interval History: Ms. Akbar states that she is feeling much better and is eager for discharge to home. Objective Active Medications: Acetaminophen (Tylenol Tab*) 650 mg PO Q4H PRN Enoxaparin Sodium (Lovenox(*)) 60 mg SUBCUT Q12H ANIA Diltiazem HCl 125 mg/ Dextrose 125 mls @ 5 mls/hr IV ED ONCE ONE Diltiazem HCl (Cardizem Iv Advan*) 100 mg in 100 mls @ 0 mls/hr IVPB Q1H ANIA; Titrate Metoprolol Tartrate (Lopressor Tab*) 25 mg PO Q6H ANIA Ondansetron HCl (Zofran Inj*) 4 mg IV Q4H PRN Vital Signs 12/20/16 12/20/16 12/20/16 12:00 12:30 13:00 Temperature Pulse Rate 150 148 143 Respiratory 13 13 21 Rate Blood Pressure 116/87 113/87 129/88 (mmHg) O2 Sat by Pulse 97 98 97 Oximetry 12/20/16 12/20/16 12/20/16 13:30 14:00 14:30 Temperature Pulse Rate 144 142 133 Respiratory 14 18 16 Rate Blood Pressure 130/84 104/74 98/77 (mmHg) O2 Sat by Pulse 97 97 98 Oximetry 12/20/16 12/20/16 12/20/16 15:00 15:22 15:34 Temperature Pulse Rate 143 Respiratory 17 17 Rate Blood Pressure 118/81 120/73 (mmHg) O2 Sat by Pulse 97 Oximetry 12/20/16 12/20/16 12/20/16 15:45 16:00 16:05 Temperature 98.8 F 98.8 F Pulse Rate 148 116 Respiratory 19 18 Rate Blood Pressure 108/74 112/87 124/95 (mmHg) O2 Sat by Pulse 96 97 Oximetry 12/20/16 12/20/16 12/20/16 16:09 16:10 16:15 Temperature 98.8 F Pulse Rate 157 154 Respiratory 19 19 Rate Blood Pressure 128/70 126/69 (mmHg) O2 Sat by Pulse 96 96 Oximetry 12/20/16 12/20/16 12/20/16 16:20 16:25 16:30 Temperature Pulse Rate 143 147 150 Respiratory 22 18 18 Rate Blood Pressure 122/72 129/72 125/80 (mmHg) O2 Sat by Pulse 97 97 97 Oximetry 12/20/16 12/20/16 12/20/16 16:35 16:41 16:45 Temperature Pulse Rate 145 148 145 Respiratory 18 18 18 Rate Blood Pressure 128/91 119/66 113/68 (mmHg) O2 Sat by Pulse 97 97 97 Oximetry 12/20/16 12/20/16 12/20/16 17:00 17:15 17:25 Temperature Pulse Rate 139 127 119 Respiratory 13 18 17 Rate Blood Pressure 125/70 118/66 119/75 (mmHg) O2 Sat by Pulse 97 97 97 Oximetry 12/20/16 12/20/16 12/20/16 17:30 17:35 17:40 Temperature Pulse Rate 146 149 138 Respiratory 16 17 18 Rate Blood Pressure 118/73 120/62 115/86 (mmHg) O2 Sat by Pulse 97 96 97 Oximetry 12/20/16 12/20/16 12/20/16 17:45 17:50 17:55 Temperature Pulse Rate 141 153 137 Respiratory 19 19 18 Rate Blood Pressure 106/68 98/57 91/52 (mmHg) O2 Sat by Pulse 96 96 96 Oximetry 12/20/16 12/20/16 12/20/16 18:00 18:04 18:15 Temperature Pulse Rate 41 87 101 Respiratory 18 17 17 Rate Blood Pressure 104/79 109/68 102/70 (mmHg) O2 Sat by Pulse 96 96 97 Oximetry 12/20/16 12/20/16 12/20/16 18:30 18:38 18:45 Temperature Pulse Rate 92 107 88 Respiratory 18 21 23 Rate Blood Pressure 91/62 107/62 121/79 (mmHg) O2 Sat by Pulse 96 97 97 Oximetry 12/20/16 12/20/16 12/20/16 19:00 19:15 19:30 Temperature Pulse Rate 117 70 103 Respiratory 15 19 21 Rate Blood Pressure 138/89 142/64 119/63 (mmHg) O2 Sat by Pulse 99 98 98 Oximetry 12/20/16 12/20/16 12/20/16 19:44 19:45 20:00 Temperature 99.8 F Pulse Rate 130 62 Respiratory 19 21 Rate Blood Pressure 109/60 (mmHg) O2 Sat by Pulse 97 96 Oximetry 12/20/16 12/20/16 12/20/16 20:15 20:30 20:45 Temperature Pulse Rate 52 82 81 Respiratory 19 16 17 Rate Blood Pressure 100/73 100/78 89/61 (mmHg) O2 Sat by Pulse 96 97 97 Oximetry 12/20/16 12/20/16 12/20/16 20:56 21:00 21:15 Temperature Pulse Rate 60 45 68 Respiratory 17 19 20 Rate Blood Pressure 98/64 105/68 113/85 (mmHg) O2 Sat by Pulse 97 96 98 Oximetry 12/20/16 12/20/16 12/20/16 21:30 21:45 22:00 Temperature Pulse Rate 76 73 72 Respiratory 18 16 19 Rate Blood Pressure 102/61 117/58 100/58 (mmHg) O2 Sat by Pulse 97 97 97 Oximetry 12/20/16 12/20/16 12/20/16 22:15 22:30 22:45 Temperature Pulse Rate 60 57 59 Respiratory 18 17 16 Rate Blood Pressure 101/55 103/53 101/57 (mmHg) O2 Sat by Pulse 96 96 96 Oximetry 12/20/16 12/20/16 12/20/16 23:00 23:15 23:23 Temperature Pulse Rate 96 78 127 Respiratory 16 21 16 Rate Blood Pressure 95/46 102/56 (mmHg) O2 Sat by Pulse 95 96 96 Oximetry 12/20/16 12/20/16 12/20/16 23:30 23:45 23:48 Temperature 98.6 F Pulse Rate 65 119 Respiratory 16 17 Rate Blood Pressure 115/71 122/62 (mmHg) O2 Sat by Pulse 97 96 Oximetry 12/21/16 12/21/16 12/21/16 00:00 00:01 00:15 Temperature Pulse Rate 77 119 95 Respiratory 21 23 18 Rate Blood Pressure 121/62 119/76 (mmHg) O2 Sat by Pulse 96 96 97 Oximetry 12/21/16 12/21/16 12/21/16 00:30 00:45 01:00 Temperature Pulse Rate 119 68 79 Respiratory 20 18 26 Rate Blood Pressure 115/64 95/55 92/52 (mmHg) O2 Sat by Pulse 96 96 96 Oximetry 12/21/16 12/21/16 12/21/16 01:15 01:30 01:45 Temperature Pulse Rate 66 70 67 Respiratory 24 19 17 Rate Blood Pressure 97/47 105/67 114/70 (mmHg) O2 Sat by Pulse 96 97 97 Oximetry 12/21/16 12/21/16 12/21/16 02:00 02:15 02:30 Temperature Pulse Rate 44 90 130 Respiratory 16 16 15 Rate Blood Pressure 115/79 119/69 118/79 (mmHg) O2 Sat by Pulse 97 96 95 Oximetry 12/21/16 12/21/16 12/21/16 02:45 03:00 03:06 Temperature Pulse Rate 103 92 52 Respiratory 15 22 21 Rate Blood Pressure 105/69 82/44 84/53 (mmHg) O2 Sat by Pulse 96 96 96 Oximetry 12/21/16 12/21/16 12/21/16 03:15 03:30 03:45 Temperature Pulse Rate 55 52 51 Respiratory 13 12 15 Rate Blood Pressure 94/55 105/66 110/67 (mmHg) O2 Sat by Pulse 98 96 97 Oximetry 12/21/16 12/21/16 12/21/16 04:00 04:15 04:30 Temperature Pulse Rate 50 53 57 Respiratory 15 17 19 Rate Blood Pressure 111/63 104/64 93/49 (mmHg) O2 Sat by Pulse 96 96 97 Oximetry 12/21/16 12/21/16 12/21/16 04:45 05:00 05:01 Temperature Pulse Rate 56 60 62 Respiratory 16 15 17 Rate Blood Pressure 92/58 106/64 (mmHg) O2 Sat by Pulse 96 97 96 Oximetry 12/21/16 12/21/16 12/21/16 05:15 05:30 05:45 Temperature 98.7 F Pulse Rate 58 62 Respiratory 15 14 Rate Blood Pressure 94/56 98/63 (mmHg) O2 Sat by Pulse 96 96 Oximetry 12/21/16 12/21/16 12/21/16 05:50 06:00 06:15 Temperature Pulse Rate 64 57 60 Respiratory 18 17 18 Rate Blood Pressure 92/75 95/59 101/59 (mmHg) O2 Sat by Pulse 96 96 97 Oximetry Oxygen Devices in Use Now: None Appearance: Female lying in bed in NAD Eyes: No Scleral Icterus Ears/Nose/Mouth/Throat: Mucous Membranes Moist Neck: NL Appearance and Movements; NL JVP, Trachea Midline Respiratory: Symmetrical Chest Expansion and Respiratory Effort, Clear to Auscultation Cardiovascular: NL Sounds; No Murmurs; No JVD, No Edema Abdominal: NL Sounds; No Tenderness; No Distention Lymphatic: No Cervical Adenopathy Extremities: No Edema Skin: No Rash or Ulcers Neurological: Alert and Oriented x 3, NL Muscle Strength and Tone Nutrition: Taking PO's Result Diagrams: 12/20/16 11:30 12/21/16 05:40 Microbiology and Other Data: Microbiology 12/20/16 16:55 Nasal Screen MRSA (PCR)(LASHAUN) - Final Nasal Mrsa Negative Assess/Plan/Problems-Billing Assessment: Ms. Akbar is a 51 yo female with recent diagnosis of lyme disease who completed a course of doxycycline who was admitted on 12/20/16 with new afib with RVR. - Patient Problems (1) Afib Comment: - Converted to NSR overnight. - Appreciate cardiology consultation. Plan to start low dose metoprolol. - [id number] score is 1, no anticoagulation indicated - Patient will follow up outpatient for an echo with Dr. Balderas. (2) DVT prophylaxis (3) Full code status Status and Disposition: OBV. Discharge to home.
[2016-12-21] MEDS ORDERED: Metoprolol Tartrate TAB* 25 MG PO SCH (09:00)
[2016-12-21 09:20] VITALS: BP 103/53
--- NOTE | 2016-12-21 09:31 | PN ---
Subjective Date of Service: 12/21/16 - CC: fluttering Interval History: The patient feels much better s/p cardioversion (following IV metoprolol and potassium). No new c/o. The patient was on metoprolol in the past, initially for BP, then increased for headaches. This led to weight gain and some lethargy. The patient admits that she thinks it did lead to less frequent or resolution of her palpitations. Medications Active Medications: Acetaminophen (Tylenol Tab*) 650 mg PO Q4H PRN PRN Reason: FEVER/PAIN Enoxaparin Sodium (Lovenox(*)) 60 mg SUBCUT Q12H ANIA Last Admin: 12/21/16 01:25 Dose: 60 mg Diltiazem HCl 125 mg/ Dextrose 125 mls @ 5 mls/hr IV ED ONCE ONE PRN Reason: 5 MG/HR Stop: 12/21/16 12:51 Last Admin: 12/20/16 12:10 Dose: 5 mls/hr Metoprolol Tartrate (Lopressor Tab*) 12.5 mg PO Q12HR ANIA Last Admin: 12/21/16 09:09 Dose: 12.5 mg Ondansetron HCl (Zofran Inj*) 4 mg IV Q4H PRN PRN Reason: NAUSEA/VOMITING Last Admin: 12/20/16 19:32 Dose: 4 mg Objective Vital Signs: Temp Pulse Resp BP Pulse Ox 98.7 F 66 24 103/53 98 12/21/16 05:45 12/21/16 09:00 12/21/16 09:00 12/21/16 09:00 12/21/16 09:00 Oxygen Devices in Use Now: None Appearance: lean fit appearing middle aged woman, lying in bed, comfortable. Eyes: No Scleral Icterus, PERRLA Ears/Nose/Mouth/Throat: NL Teeth, Lips, Gums, Mucous Membranes Moist Neck: NL Appearance and Movements; NL JVP, No Thyroid Enlargement, Masses Respiratory: Symmetrical Chest Expansion and Respiratory Effort, Clear to Auscultation Cardiovascular: NL Sounds; No Murmurs; No JVD Abdominal: NL Sounds; No Tenderness; No Distention Extremities: No Edema Skin: No Rash or Ulcers Neurological: Alert and Oriented x 3, NL Muscle Strength and Tone Lines/Tubes/Other Access: Clean, Dry and Intact Peripheral IV Laboratory Results: 12/21/16 05:40 Total Bilirubin 0.70 mg/dL (0.2-1.0) 12/20/16 11:30 AST 21 U/L (13-39) 12/20/16 11:30 ALT 18 U/L (7-52) 12/20/16 11:30 Alkaline Phosphatase 42 U/L (34-104) 12/20/16 11:30 B-Natriuretic Peptide 25 pg/mL (-100) 12/20/16 11:30 Total Protein 7.6 g/dL (6.4-8.9) 12/20/16 11:30 Albumin 4.6 g/dL (3.2-5.2) 12/20/16 11:30 Globulin 3.0 g/dL (2-4) 12/20/16 11:30 Albumin/Globulin Ratio 1.5 (1-3) 12/20/16 11:30 TSH 1.27 mcIU/mL (0.34-5.60) 12/20/16 11:30 EKG Data: Monitor: NSR post conversion. Assessment/Plan 51 yo with < 24 hours afib, CHADs score 0-1. Possible triggor: Lyme, EtOH. Now post cardioversion on rate lowering agents with electrolyte replacement. Plan: discharge to home on low dose beta blockade. No anti coagulants, low CHADs score, I had a discussion on this with the patient and she would prefer not to be on these, even short term. F/u for echo and OV in our office, no alcohol, caffiene and pt advised to get plenty of sleep.
--- NOTE | 2016-12-21 16:11 | DS ---
CC: Dr. Carey * [facility] MEDICINE DISCHARGE SUMMARY: DATE OF ADMISSION: 12/20/16 DATE OF DISCHARGE: 12/21/16 ATTENDING PHYSICIAN: Dr. Tita Snyder * (dictation provided by Alley Limon NP ) PRIMARY DIAGNOSIS: Atrial fibrillation with rapid ventricular response. SECONDARY DIAGNOSES: 1. History of Lyme disease, completed doxycycline recently. 2. Questionable history of hypertension. PAST SURGICAL HISTORY: 1. Appendectomy. 2. Cholecystectomy. 3. Tonsillectomy. MEDICATIONS AT THE TIME OF DISCHARGE: Metoprolol tartrate 12.5 mg p.o. b.i.d. ( new medication). HOSPITAL COURSE: Ms. Akbar is a 51-year-old female with a recent history of Lyme disease, who completed a course of doxycycline. She presented to the hospital on 12/20/16 with concerns for palpitations and chest pain. Please see the dictated H and P from LEIGHANN Gant, for complete details. In brief, the patient stated that the palpitations started suddenly on date of admission. She did, however, note that she had had some symptoms similar to this over several years but they resolved spontaneously and were very brief. In the emergency room, she was found to be in atrial fibrillation with rapid ventricular response and the heart rate of about 150. Ms. Akbar was admitted to the hospital. She was treated with Cardizem drip and metoprolol orally. With this, she has converted spontaneously to normal sinus rhythm. She states she is feeling much better. She has no complaints this morning. She was seen in consultation by Dr. Balderas from Cardiology and I refer you to her note for complete details. In brief, she suspected that possible triggers for the AFib could include alcohol or recent diagnosis of Lyme disease. The patient's initial potassium at 3.8, was repleted to 4.3. Her magnesium was at 1.9 and no repletion was given. Her troponin was 0.01 and her EKG again showed the AFib with no ischemia. Ms. Akbar is ready for discharge today as she has remained in normal sinus rhythm. Dr. Balderas and I recommend that she be discharged to home on metoprolol 12.5 mg p.o. b.i.d. At this time, her CHADS-VASc score is 1 with her sex category only being positive. She does not seem to have a history of hypertension. On further investigation, believes that no anticoagulation is indicated and the patient was not interested in anticoagulation at this time. DISPOSITION: Home. DIET: Regular. The patient has been asked to avoid caffeine and alcohol. ACTIVITY: As tolerated. FOLLOWUP PLANS: 1. Please follow up with Dr. Carey regarding this acute hospitalization. 2. Please follow up with Dr. Balderas's office regarding scheduling an outpatient transthoracic echocardiogram. TIME SPENT: Approximately 60 minutes was spent in the discharge of this patient , more than half the time was spent with her at the bedside reviewing the events leading up to this hospitalization, performing the physical examination, and reviewing the plan of care. ALLEY LIMON NP [id number]/[facility] #: [id number] [place]
== END 2016-12-21 10:30 | disposition home or self-care (01) ==
LOC: ED 10:37 → ICU 11:45 → INTOOBSV 11:45
PROVIDERS: ADMIT Internal Medicine; ATTEND Internal Medicine
DX: I48.91 Unspecified atrial fibrillation (principal); Q42.8 Congenital absence, atresia and stenosis of other parts of large intestine; Z90.49 Acquired absence of other specified parts of digestive tract
CPT/HCPCS: 36415; 71010; 80048; 80053; 82550; 83605; 83735; 83880; 84443; 84484; 85025; 85652; 86140; 87641; 93005; 96374; 99284; A9270-GY; G0378; J1650; J2405